=== PATIENT | male | born 1985 | race Caucasian/White ===

== ENCOUNTER 2020-09-28 20:51 | Emergency (ER) | payer OTHER, SELFPAY ==
[2020-09-28 20:57] VITALS: BP 158/92; PULSE 105; RESP 15; TEMP 36.7; O2SAT 98; BMI 33.0
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
--- NOTE | 2020-09-28 21:42 | CT_ITS ---
EXAMINATION: CT HEAD WITHOUT CONTRAST CLINICAL INFORMATION: Right ear pain. Question mastoiditis. COMPARISON: None TECHNIQUE: Contiguous axial imaging was performed from the skull base to vertex without intravenous administration of contrast. This CT examination was performed using dose optimization techniques as appropriate, variously including the following: *Automated exposure control *Adjustment of mA and/or kV according to patient size (this includes techniques or standardized protocols for targeted exams where dose is matched to indication/reason for exam; i.e. extremities or head) *Use of iterative reconstruction technique DLP: 863 mGy-cm FINDINGS: There is no evidence of acute intracranial hemorrhage or territorial infarction. No abnormal mass effect or midline shift is seen. [place] to white matter differentiation is well preserved. No extra-axial fluid collections are identified. The ventricles are normal in size. There is no abnormal attenuation within the brain parenchyma. The osseous structures and soft tissues are normal. A small left maxillary sinus with complete opacification of left maxillary sinus is noted. Rest of the paranasal sinuses are well-aerated and clear. There is soft tissue density seen in the right middle ear likely cholesteatoma. Soft tissue density is also seen in the external auditory canal adjacent to the tympanic membrane. CT/CT head/brain wo con IMPRESSION: No acute intracranial process seen. Chronic left maxillary sinusitis. Likely cholesteatoma right middle ear and soft tissue inflammation right external auditory canal adjacent to the tympanic membrane
[2020-09-28] MEDS: oxyCODONE HCl Immed Release 5 MG TABLET PO (21:54)
[2020-09-28] MEDS: Azithromycin 500 MG TABLET PO (21:54)
[2020-09-28 23:08] VITALS: BP 135/91; PULSE 102; RESP 16; TEMP 36.8; O2SAT 95
== END 2020-09-28 23:09 | disposition home or self-care (01) ==
PROVIDERS: Emergency Provider Emergency Medicine
DX: H65.01 Acute serous otitis media, right ear (principal); H92.01 Otalgia, right ear; Z79.899 Other long term (current) drug therapy
CPT/HCPCS: 70450; 99284